=== PATIENT | male | born 1955 | race Caucasian/White ===

== ENCOUNTER 2020-12-10 09:45 | Day surgery (SDC) | payer MEDICARE ==
[~2020-12-10] VITALS: Ht 182.9 cm; Wt 92.1 kg
[~2020-12-10 09:45] MED LIST: Flomax0.4 MG PO
== END 2020-12-10 12:18 | disposition home or self-care (01) ==
LOC: ORSCSDS 09:45
PROVIDERS: Internal Medicine Gastroenterology
PROC: 0DBL8ZX Excision of Transverse Colon, Via Natural or Artificial Opening Endoscopic, Diagnostic (ICD-10-PCS; principal; 2020-12-10 11:45)
PROC: 0DBM8ZX Excision of Descending Colon, Via Natural or Artificial Opening Endoscopic, Diagnostic (ICD-10-PCS; principal; 2020-12-10 11:45)
PROC: 0DBH8ZX Excision of Cecum, Via Natural or Artificial Opening Endoscopic, Diagnostic (ICD-10-PCS; principal; 2020-12-10 11:45)
PROC: 0DBP8ZX Excision of Rectum, Via Natural or Artificial Opening Endoscopic, Diagnostic (ICD-10-PCS; principal; 2020-12-10 11:45)
DX: Z12.11 Encounter for screening for malignant neoplasm of colon (principal); R85.613 High grade squamous intraepithelial lesion on cytologic smear of anus (HGSIL); D12.0 Benign neoplasm of cecum; D12.2 Benign neoplasm of ascending colon; D12.3 Benign neoplasm of transverse colon; D12.4 Benign neoplasm of descending colon; D12.8 Benign neoplasm of rectum; K57.30 Diverticulosis of large intestine without perforation or abscess without bleeding; K64.1 Second degree hemorrhoids; F17.210 Nicotine dependence, cigarettes, uncomplicated; Z79.899 Other long term (current) drug therapy
CPT/HCPCS: 88305; J2250; J2704; J7120

== ENCOUNTER 2021-03-30 21:12 | Emergency (ER) | payer MEDICARE ==
[~2021-03-30] VITALS: Ht 182.9 cm; Wt 43.1 kg
[2021-03-31] MEDS ORDERED: TAMS.4ER PO (18:54)
[2021-03-31] MEDS ORDERED: Bactrim Ds Tab1 EACH PO (19:27)
[2021-03-31] MEDS ORDERED: CEPH500 PO (19:27)
== END 2021-03-30 23:14 | disposition left against medical advice (07) ==
LOC: ER 21:12
DX: N50.89 Other specified disorders of the male genital organs (principal); Z53.21 Procedure and treatment not carried out due to patient leaving prior to being seen by health care provider
CPT/HCPCS: 99281

== ENCOUNTER 2021-03-31 16:18 | Emergency (ER) | payer MEDICARE ==
[~2021-03-31] VITALS: Ht 182.9 cm; Wt 90.7 kg
[2021-03-31] MEDS ORDERED: TAMS.4ER PO (18:54)
[2021-03-31] MEDS ORDERED: Bactrim Ds Tab1 EACH PO (19:27)
[2021-03-31] MEDS ORDERED: CEPH500 PO (19:27)
== END 2021-03-31 19:32 | disposition home or self-care (01) ==
LOC: ER 16:18
DX: N49.2 Inflammatory disorders of scrotum (principal); F17.210 Nicotine dependence, cigarettes, uncomplicated
CPT/HCPCS: 55100; 99283-25; A9270

== ENCOUNTER 2022-04-15 09:52 | Day surgery (SDC) | payer MEDICARE ==
[~2022-04-15] VITALS: Ht 182.9 cm; Wt 95.3 kg
[~2022-04-15 09:52] MED LIST changes: +Bactrim Ds Tab1 EACH PO; +CEPH500 PO; +Prednisone50 MG PO; +TAMS.4ER PO; +Tessalon200 MG PO
[2022-04-15] MEDS ORDERED: PRAM.125 (10:20)
== END 2022-04-15 13:08 | disposition home or self-care (01) ==
LOC: ORSCSDS 09:52
PROVIDERS: Student in an Organized Health Care Education/Training Program
PROC: 0DBL8ZX Excision of Transverse Colon, Via Natural or Artificial Opening Endoscopic, Diagnostic (ICD-10-PCS; principal; 2022-04-15 11:15)
PROC: 0DBP8ZX Excision of Rectum, Via Natural or Artificial Opening Endoscopic, Diagnostic (ICD-10-PCS; principal; 2022-04-15 11:15)
PROC: 0DBN8ZX Excision of Sigmoid Colon, Via Natural or Artificial Opening Endoscopic, Diagnostic (ICD-10-PCS; principal; 2022-04-15 11:15)
PROC: 0DBM8ZX Excision of Descending Colon, Via Natural or Artificial Opening Endoscopic, Diagnostic (ICD-10-PCS; principal; 2022-04-15 11:15)
PROC: 0DBH8ZX Excision of Cecum, Via Natural or Artificial Opening Endoscopic, Diagnostic (ICD-10-PCS; principal; 2022-04-15 11:15)
PROC: 0DBK8ZX Excision of Ascending Colon, Via Natural or Artificial Opening Endoscopic, Diagnostic (ICD-10-PCS; principal; 2022-04-15 11:15)
DX: Z12.11 Encounter for screening for malignant neoplasm of colon (principal); Z86.010 Personal history of colon polyps; D12.3 Benign neoplasm of transverse colon; D12.2 Benign neoplasm of ascending colon; D12.4 Benign neoplasm of descending colon; K62.82 Dysplasia of anus; K57.30 Diverticulosis of large intestine without perforation or abscess without bleeding; K64.8 Other hemorrhoids; K62.89 Other specified diseases of anus and rectum; F17.210 Nicotine dependence, cigarettes, uncomplicated; N40.0 Benign prostatic hyperplasia without lower urinary tract symptoms; Z79.899 Other long term (current) drug therapy
CPT/HCPCS: 88305; J2704; J7120

== ENCOUNTER 2023-06-16 12:23 | Day surgery (SDC) | payer MEDICARE ==
[~2023-06-16 12:23] MED LIST changes: +AZIT250 PO; +BENZ100A PO; +PRAM.125; +PRED20 PO; +Ventolin/Prove6.7 GM INH
[2023-06-16 12:52] VITALS: BP 136/96
[2023-06-16] MEDS ORDERED: TRELEGY ELLIPT1 EAC1 IH (12:54)
--- NOTE | 2023-06-16 13:02 | NUR ---
06/16/23 1302 HdezJuvencioKatty UPON ADMITTING PT INTO [facility] PT VERBALIZED THAT HE ATE A COOKIE AND A 1/2 SLICE OF PIZZA AT 3PM YESTERDAY. ALSO VERBALIZED DRINKING RIGHT BEFORE HE WAS BROUGHT IN TO THE PRE[facility] AREA. INITIALLY PT REPORTED HE HAD ONLY HAD "2 SIPS, MAYBE 2 OZS OF WATER FROM A WATER BOTTLE", BUT AFTER EXPLAINING TO PATIENT WHY IT'S IMPORTANT TO KNOW JUST HOW MUCH HE ATE AND DRANK HE SAID THAT IT WAS ACTUALLY 2-3 "REALLY GOOD SIZED DRINKS OF WATER". PT REPORTED THAT HE WAS NOT ABLE TO SEE BOTTOM OF TOILET AFTER LAST BM. THIS RN HAD PATIENT USE RESTROOM AND NOT FLUSH AND WHEN THIS NURSE VISUALIZED INSIDE TOILET, THERE WAS A LAYER OF LIGHT BROWN SEDIMENT COVERING BOTTOM OF TOILET BOWL. SHERRILL BUTTERFIELD DISCUSSED ALL OF THE ABOVE WITH DR. VOGT AND IT WAS DECIDED TO CANCEL TODAY'S PROCEDURE AND HAVE PT CALL OFFICE TO RESCHEDULE. PT IS VERY AGREEABLE TO THIS PLAN. GAVE PT GI OFFICE PHONE NUMBER AND HE AGREES TO CALL AND RESCHEDULE. PT REDRESSED AND AMBULATED OUT OF CLINIC.
== END 2023-06-16 12:56 | disposition home or self-care (01) ==
LOC: ORSCSDS 12:23
DX: K74.60 Unspecified cirrhosis of liver (principal); B18.2 Chronic viral hepatitis C; Z53.9 Procedure and treatment not carried out, unspecified reason
CPT/HCPCS: J0461; J2001; J2405; J2704; J7120; Q9968